=== PATIENT | female | born 1935 ===

== ENCOUNTER → 2018-09-06 | Outpatient (CLI) | payer OTHER ==
[~2018-09-06] VITALS: Ht 157.5 cm; Wt 56.7 kg
[~2018-09-06] MED LIST: ACETAMINOPHEN500 MG PO; ALENDRONATE SOD70 MG PO; CALCIUM 600 +1 EAC8 PO; FIBER625 MG PO; IBUPROFEN 200200 M1 PO; IRON325 PO; MIRALAX17 GM PO; NEURONTIN 300300 M1 PO; NORVASC5 MG PO; REMERON15 MG PO; ULTRACET TABLET1 TAB PO; UNICOMPLEX M TA1 TA1 PO
[2018-09-06 13:25] VITALS: BP 156/93
--- NOTE | 2018-09-13 07:41 | HPC ---
[facility] [address] [place] [address] PAIN MANAGEMENT CONSULTATION Name: GODFREY EVANGELISTA Room #: REG SALENA Jayden.#: [id number] Admission: 09/06/18 ������������������ Attend Phys: Conner Barrera DO Discharge: ������������������ Date of : 33 Report #: [id number] THIS REPORT FOR: //name// CC: FAM physician/PCP Conner Medrano MD DATE OF SERVICE: 09/06/2018 REFERRING PHYSICIAN: Chapo Medrano M.D. CHIEF COMPLAINT: Thoracic radiculopathy. HISTORY OF PRESENT ILLNESS: As you know, the patient is a pleasant 83-year-old female who reports acute onset of thoracic pain radiating along what appears to be the T9 dermatome on the right that began in April 2018. The patient states that pain began to intensify and by 05/05/2018, she had unremitting debilitating pain that radiated upon the right T9 apparent dermatome. She has been trialed on medication therapy, sought further evaluation, which showed a subacute T8 and T9 compression fractures and was initially then sent to see Dr. Suaerz for possible surgical consultation. The consultation at that time did not note that the compression fractures were the potential source of the pain. The patient was then subsequently referred to the Center for relief of pain to see Dr. Chapo Medrano. There was some discussion with the patient in regards to the findings of her x-ray imaging and the potential sources of symptoms. She was then subsequently referred to our clinic to trial T8 and T9 diagnostic nerve root blocks on that right side to determine which of the levels may be causing her symptoms. There was no indication in the notes about surgical options if the source of symptoms is noted with these blocks. She has been referred to our service to trial T8 and T9 diagnostic nerve root blocks. The patient reports today pain is continuous and constant with brief exacerbations. She describes the pain as burning, aching, pulling, throbbing, sharp, stabbing, pounding, numbness and tingling and places current pain score 9/10, daily average of 6-9/10, worst the pain has been is 9/10. The patient states that using her right upper extremity and standing for long periods of time exacerbates symptoms, nothing tends to improve pain. She has been referred to our clinic to discuss treatment options for suspected T8/T9 right-sided thoracic radiculopathy. PAST MEDICAL HISTORY: 1. Hypertension. 2. Breast cancer status post left mastectomy. 3. Anxiety. 4. Diabetes mellitus type 2. [address] [address] PAIN MANAGEMENT CONSULTATION Name: GODFREY EVANGELISTA Room #: REG [facility].#: [id number] Admission: 09/06/18 ������������������ Attend Phys: Conner Barrera DO Discharge: ������������������ Date of : 33 Report #: [id number] 5. Osteoporosis. 6. Osteoarthritis. 7. Seasonal allergies. 8. Irritable bowel syndrome. 9. History of shingles. PAST SURGICAL HISTORY: 1. Left mastectomy. 2. Tubal ligation. 3. Colonoscopy with EGD. 4. Hysterectomy laparoscopically. SOCIAL HISTORY: The patient denies tobacco, alcohol, IV or illicit drug use. She is retired, retired years ago. She is not receiving workmen's compensation nor is she trying to obtain disability benefits. She is not in litigation in regards to pain. REVIEW OF SYSTEMS: Positive for night sweats, fatigue and weakness, wearing corrective eyewear, cataracts, hearing loss with tinnitus, shortness of breath, walking or lying flat, asthma, wheezing, changes in bowel movements, painful bowel movements with constipation, frequent urination, nocturia, lightheadedness and dizziness, numbness or tingling sensations, memory loss, nervousness, diabetes mellitus type 2 and right chest wall pain. All other review of systems negative per 12-point review of systems other than those listed in history of present illness. PAIN SCORE: Pain impact score 31/70 indicating moderate interference of daily activities secondary to pain. ALLERGIES: No reported drug allergies. CURRENT MEDICATIONS: Amlodipine 5 mg once a day, alendronate 70 mg once a week, calcium carbonate 1 tab per day, Tylenol 325 mg p.r.n., gabapentin 300 mg t.i.d., tramadol 37.5 mg p.r.n., mirtazapine 15 mg p.o. at bedtime, sucralfate 1 gram per day, FiberCon 1 tab per day, ibuprofen 200 mg 4 times a day and Benadryl 25 mg p.o. at bedtime. IMAGING DATA: The patient arrives today with no imaging studies. PQRS: The patient has no known osteoarthritic changes of the lumbar spine, bilateral hips and knees mildly in the hands. No rheumatoid arthritis. She is placing pain intensity today 6-9/10. She is not a fall risk, has not had a fall in the last 3 months. She is treated for hypertension, but is not on any blood thinners. She is on tramadol but no definitive opioids. She has a low opioid addiction potential. Pain impact score 31/70. [facility] [address] [place] [address] PAIN MANAGEMENT CONSULTATION Name: GODFREY EVANGELISTA Room #: HECTOR Briones#: [id number] Admission: 09/06/18 ������������������ Attend Phys: Conner Barrera DO Discharge: ������������������ Date of : 33 Report #: [id number] PHYSICAL EXAMINATION: GENERAL: Well-developed, well-nourished and well-hydrated 83-year-old female, appears her stated age. She is awake, alert and oriented x 3, placing pain score at 6-9/10. HEENT: Normocephalic and atraumatic. Pupils equal, round and reactive to light. Extraocular muscles are intact. Sclerae nonicteric without injection. NEUROLOGICAL: Cranial nerves 2 through 12 grossly intact. Speech fluent. The patient deemed a good historian. LUNGS: Clear. No wheezes, rhonchi or rales. CARDIOVASCULAR: Regular. No appreciable gallop and no rub. ABDOMEN: Soft, nontender and nondistended. Normoactive bowel sounds. EXTREMITIES: Show no clubbing, no cyanosis and no edema. MUSCULOSKELETAL: The patient has some tactile sensation changes over what appears to be either the T8 or T9 dermatome on the right, negative left. There is hyperalgesia to the area as well as some allodynia. Deep inhalation and exhalation causes no change in overall pain. There are no rashes, lesions or ulcerations overlying the source of pain. There is no palpatory tenderness over the paraspinal musculature of the thoracic spine. ASSESSMENT: 1. Chronic T8 vertebral compression fracture. 2. Chronic T9 vertebral compression fracture. 3. Thoracic radiculopathy. PLAN: 1. Based on today's physical exam and history the patient has provided, the description the patient is using in regards to pain as well as the distribution, which appears to be upon the T8/T9 dermatomal distribution on the right, likely source of the patient's pain is low thoracic radiculopathy. I do not have imaging available to me to date to review but given the distribution of symptoms, I would be concerned of neural foraminal stenosis affecting either one of these 2 nerve roots. The patient has sought evaluation through Neurosurgery but has been determined that she needs to undergo diagnostic block to determine which level the symptoms may be radiating on as it is difficult to determine dermatomal distributions of T8-T9 as they can have a variable pathways. We discussed this with the patient today. We also discussed other treatment options as follows. We discussed physical therapy, stretching exercise, core strengthening as a way to improve overall pain. We discussed medication management adding a neuropathic pain medication that she uses on a consistent basis. We discussed the requested nerve root blocks and then ultimately possible surgical options, which could include spinal cord stimulator or possible surgical decompression if necessary. After reviewing risks and benefits of all proposed treatment options, the patient chose to begin with medication management initially. If this is not helpful, then look towards the [place] [address] PAIN MANAGEMENT CONSULTATION Name: GODFREY EVANGELISTA Room #: REG SALENA Briones#: [id number] Admission: 09/06/18 ������������������ Attend Phys: Conner Barrera DO Discharge: ������������������ Date of : 33 Report #: [id number] possible surgical options. 2. The patient will be started on gabapentin 300 mg dose. We will start 1 tablet at night and continue to escalate dosing to reach approximately 900 mg 3 times a day. We will start out at 300 mg and escalate dose every 3 days until which time the patient either reaches improvement in pain or side effects she cannot tolerate. She was given a written titration of the medication to follow today. She was also given a prescription for gabapentin 300 mg dose, #270 tablets. The patient was advised to watch for side effects of somnolence, decreased in mental acuity, disorientation, confusion, mental slowing and with the medication if she notes side effects and no improvement in symptoms, she will reduce the dose to the prior lower dose reducing her potential side effects and contact the clinic for further evaluation. 3. We will see the patient back in followup visit for possible nerve root blocks. We will begin the authorization process as her insurer will require prior authorization to undergo initially a T9 nerve root block on the right. If this is unsuccessful in alleviating symptoms, then we have been requested by her neurosurgery team to provide the next week a T8 right-sided nerve root block. We will obtain authorization for both blocks. Hopefully, we will have the right block the first and not have to utilize the second injection. We will begin this authorization process immediately. Once it has been obtained, we will have the patient return to discuss the option at this treatment. 4. We wish to thank nurse practitioner, Scarlet Hector and Dr. Chapo Medrano for the referral of this patient to our clinic. We will keep you apprised of her response to treatment as we address thoracic radiculopathy. Again, we wish to thank you for the opportunity to see this patient in consultation. ��������������������������������������������� <ELECTRONICALLY SIGNED> ���������������������������������������� By: Conner Barrera DO ��������������������������������������������� 09/13/18 [id number] [id number] Conner Barrera DO /nt
== END ==
LOC: PAIN 08-30 07:10
DX: S22.068A Other fracture of T7-T8 thoracic vertebra, initial encounter for closed fracture (principal); M54.14 Radiculopathy, thoracic region; I10 Essential (primary) hypertension; E11.9 Type 2 diabetes mellitus without complications; F41.9 Anxiety disorder, unspecified; M81.0 Age-related osteoporosis without current pathological fracture; M19.90 Unspecified osteoarthritis, unspecified site; Z79.899 Other long term (current) drug therapy; Z90.710 Acquired absence of both cervix and uterus; Z85.3 Personal history of malignant neoplasm of breast; X58.XXXA Exposure to other specified factors, initial encounter; Y93.89 Activity, other specified; Y92.89 Other specified places as the place of occurrence of the external cause; Y99.8 Other external cause status

== ENCOUNTER → 2018-10-04 | Outpatient (CLI) | payer OTHER ==
[~2018-10-04] VITALS: Ht 157.5 cm; Wt 63.3 kg
[~2018-10-04] MED LIST changes: +TRAMADOL HCL50 MG PO
[2018-10-04 14:20] VITALS: BP 155/83
--- NOTE | 2018-10-04 14:39 | NUR ---
Pain Clinic Assessment: 1. History of Osteoarthritis: yes History of Rheumatoid Arthritis: Not Applicable 2. Height: 5 ft. 2 in. 157.5 cm. Weight: 139.6 lb. oz. 63.322 kg. Patient's BMI: 25.5 3. Vital Signs: BP: 155/83 Pulse: 85 Resp: 16 Temp: 02 Sat: 98 ECG Mon: 4. Pain Intensity: 7 5. Fall Risk: Dizziness: N Needs help standing or walking: N Fallen in the last 3 months: N Fall risk comments: 6. Patient on Blood Thinner: None 7. History of Hypertension: Y 8. Opioid Therapy greater than 6 weeks: N Opiate Contract Signed: 9. Risk Assessment Tool Provided: low-0 10. Functional Assessment Tool: 35/ 11. Recreational Drug Use: Never Drug Type: Tobacco Use: Never Smoker Tobacco Type: Amount or Packs/day: How Many Years: Alcohol Use: No Frequency: Quant:
--- NOTE | 2018-10-11 10:49 | HPC ---
[facility] [address] [place] [address] PAIN MANAGEMENT CONSULTATION Name: GODFREY EVANGELISTA Room #: REG SALENA MMiguel A.#: [id number] Admission: 10/04/18 ������������������ Attend Phys: Conner Barrera DO Discharge: ������������������ Date of : 33 Report #: [id number] THIS REPORT FOR: //name// CC: [facility] physician/PCP LINA Waggoner MD DATE OF SERVICE: 10/04/2018 CHIEF COMPLAINT: Thoracic radicular symptoms. HISTORY OF PRESENT ILLNESS: As you know, the patient is an 83-year-old female who returns today in followup visit having been started on gabapentin for pain control. She is now taking medication at 300 mg in morning, 300 mg at noon and 600 mg at night. She is beginning to note improvement in symptoms. We recommend that the patient then continue escalation. She returns to make further adjustments in her medication management. She is denying any significant side effects to the medication at this time. She wishes to make further adjustments in the medication to address radicular symptoms. ALLERGIES: None reported. CURRENT MEDICATIONS: Gabapentin 300 mg 3 times a day, FiberCon 1 tab per day, MiraLax 17 grams per day, ibuprofen 200 mg 3 times a day, ferrous sulfate 325 mg per day, calcium carbonate 1 tab per daily, multivitamin 1 tab per day, alendronate 70 mg once a week, acetaminophen 500 mg b.i.d., mirtazapine 15 mg p.o. at bedtime, amlodipine 5 mg p.o. q. day, tramadol 37.5/325 mg dose 1 tab p.o. q. 8 hours p.r.n. for pain. IMAGING: There is no new imaging available. PQRS: The patient has arthritic changes of the lumbar spine, bilateral hips, mildly in the knees and in the hands. No rheumatoid arthritis. She is placing pain intensity today at 7/10. She is not a fall risk, has not had a fall in the last 3 months. She is not on blood thinners. She is treated for hypertension. She is not on any chronic opioids and does have a low opioid addiction potential, placing pain impact score at 35/70, moderate interference of daily activities secondary to pain. PHYSICAL EXAMINATION: VITAL SIGNS: Blood pressure 155/83, pulse 85, respiratory rate 16 and unlabored. The patient is 98% on room air. Height 5 feet 2 inches tall, weight 139.6 pounds, BMI calculated 25.5. GENERAL: Well-developed, well-nourished, well-hydrated 83-year-old female appearing stated age, placing current pain score 7/10. [place] [address] PAIN MANAGEMENT CONSULTATION Name: GODFREY EVANGELISTA Room #: REG CLKriss Carpenter.#: [id number] Admission: 10/04/18 ������������������ Attend Phys: Conner Barrera DO Discharge: ������������������ Date of : 33 Report #: [id number] HEENT: Normocephalic, atraumatic. Pupils equal, round, reactive to light. EXTREMITIES: Show no clubbing, no cyanosis and no edema. EXTREMITIES: There are some tactile sensation changes over what appears to be the T8-T9 dermatome on the right, negative left. Hyperalgesia is noted in the area and mild allodynia. Deep inhalation and exhalation again does not change overall pain. There is no rash, lesions, or ulcerations over the area consistent with herpes zoster. There is no palpatory tenderness over the thoracic spine. ASSESSMENT: 1. Chronic T8 vertebral compression fracture. 2. Chronic T9 vertebral compression fracture. 3. Thoracic radiculopathy. 4. Medication intolerance. PLAN: 1. The patient has returned today in followup visit indicating that the gabapentin is causing some lower extremity swelling. Unfortunately, this is a potential side effect with gabapentin. We recommend the patient begin weaning off the therapy. She is noticing some improvement in symptoms with the medication, but given the side effects, she wishes to decrease the medication and come off entirely as she is not receiving significant enough benefit to continue with the potential side effects. We have given the patient a titration schedule to come off of the gabapentin. The patient may note worsening of pain and if this occurs, we will adjust neuropathic medications if necessary at our next followup visit. The patient has been given new titration to come off the gabapentin in written form today. We have copies in our chart if the patient does have questions or concerns. 2. We have provided the patient with a prescription of tramadol 50 mg dose for allowing her one tab every 6 hours p.r.n. for pain. She is to take the medication only when necessary. She is not to utilize the medication prophylactically. She is to watch for side effects of somnolence, decreased mental acuity, disorientation, confusion, mental slowing and constipation. If she notes any side effects, contact our clinic after discontinuing use. 3. We will see the patient back in followup visit in 1 month. Once we have stabilized the patient on a dose of medication and appear appropriate, she will be returning to her PCP to continue the therapy. We are hopeful that the adjustments today will improve her overall pain and reduce the potential side effects from gabapentin. We will see her back in 1 month. ��������������������������������������������� <ELECTRONICALLY SIGNED> ���������������������������������������� By: Conner Barrera DO ��������������������������������������������� 10/11/18 1049 [id number] [id number] Conner Barrera DO /alexandra
== END ==
LOC: PAIN 06:57
DX: M48.54XA Collapsed vertebra, not elsewhere classified, thoracic region, initial encounter for fracture (principal); M54.14 Radiculopathy, thoracic region; Z79.899 Other long term (current) drug therapy

== ENCOUNTER → 2021-01-22 | Outpatient (CLI) | payer OTHER ==
[~2021-01-22] VITALS: Ht 157.5 cm; Wt 69.3 kg
[~2021-01-22] MED LIST changes: +ASA81BEC PO; +B COMPLEX WITH1 EAC1 PO; +COZAAR 25 MG TA25 M1 PO; +VITAMIN D3125 MC1 PO
[2021-01-22 08:32] VITALS: BP 184/94
--- NOTE | 2021-01-22 08:48 | NUR ---
Pain Clinic Assessment: 1. History of Osteoarthritis: yes History of Rheumatoid Arthritis: Not Applicable 2. Height: 5 ft. 2 in. 157.5 cm. Weight: 152.8 lb. oz. 69.310 kg. Patient's BMI: 27.9 3. Vital Signs: BP: 184/94 Pulse: 96 Resp: 20 Temp: 02 Sat: 99 ECG Mon: 4. Pain Intensity: 7 5. Fall Risk: Dizziness: N Needs help standing or walking: N Fallen in the last 3 months: N Fall risk comments: 6. Patient on Blood Thinner: None 7. History of Hypertension: Y 8. Opioid Therapy greater than 6 weeks: N Opiate Contract Signed: 9. Risk Assessment Tool Provided: low-0 10. Functional Assessment Tool: 35/70 11. Recreational Drug Use: Never Drug Type: Tobacco Use: Never Smoker Tobacco Type: Amount or Packs/day: How Many Years: Alcohol Use: No Frequency: Quant:
--- NOTE | 2021-01-28 08:07 | HPC ---
[address] [address] PAIN MANAGEMENT CONSULTATION Name: GODFREY EVANGELISTA Room #: REG SALENA MMiguel A.#: [id number] Admission: 01/22/21 Attend Phys: Conner Barrera DO Discharge: Date of : 33 Report #: [id number] THIS REPORT FOR: cc: NIESHA MCGUIRE MD Physician not on staff Conner Barrera DO ~ cc: Niesha Mcguire NP, Chapo Medrano MD DATE OF SERVICE: 01/22/2021 CHIEF COMPLAINT: Low back pain, bilateral lower extremity pain. HISTORY OF PRESENT ILLNESS: As you know, the patient is an 85-year-old female who was referred back to our service due to lumbar radiculopathy. The patient was recently hospitalized for lumbar radicular symptoms. 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 She was deemed a nonsurgical candidate and advised to return to our clinic to trial an epidural injection. She returns today reporting pain that is aching, burning, constant, pounding, sharp, stabbing, and pulling. Places current pain score 7/10. All activities exacerbate symptoms, nothing tends to improve pain. She has been referred back to our clinic to trial an epidural injection under fluoroscopic guidance. ALLERGIES: GABAPENTIN. CURRENT MEDICATIONS: Losartan 25 mg once a day, tramadol 50 mg every 8 hours p.r.n., gabapentin 300 mg p.o. at bedtime, FiberCon 625 mg once a day, MiraLax 17 grams per day, ibuprofen 200 mg every 6 hours, ferrous sulfate 325 mg per day, calcium carbonate 1 tab per day, multivitamin 1 tab per day, Alendronate 70 mg once a week, acetaminophen 500 mg twice a day, mirtazapine 15 mg once a day, amlodipine 5 mg per day. SOCIAL HISTORY: The patient denies tobacco, alcohol, or IV illicit drug use. She is retired, retired years ago, accompanied by a family member present in the room today. IMAGING: No new imaging available. PQRS: The patient has known arthritic changes of lumbar spine, bilateral hips, bilateral knees and hands. No rheumatoid arthritis. She is placing pain today at 7/10. She is not a fall risk and has not had a fall in the last 3 months. She is not on blood thinners. She is treated for hypertension, but is on low dose opioid medication for pain control without any concern of addiction. Pain impact score is 45/70, moderate to severe interference of daily activities secondary to pain. PHYSICAL EXAMINATION: [address] [address] PAIN MANAGEMENT CONSULTATION Name: GODFREY EVANGELISTA Room #: REG Kriss Carpenter.#: [id number] Admission: 01/22/21 Attend Phys: Conner Barrera DO Discharge: Date of : 33 Report #: [id number] VITAL SIGNS: Blood pressure 184/94, pulse 96, respiratory rate 20, unlabored. The patient is 99% on room air. Height 5 feet 2 inches tall, weight 152.2 pounds, BMI calculated 27.9. GENERAL: Well-developed, well-nourished, well-hydrated 83-year-old female appearing stated age. She is in no acute distress. Awake, alert and oriented x3. She is wearing a mask in compliance with COVID-19 regulation. She does have difficulty with hearing. EXTREMITIES: Show no clubbing, no cyanosis. There is noted edema in the lower extremities bilaterally, believed to be consistent with swelling from gabapentin. MUSCULOSKELETAL: Lower extremities strength equal and symmetrical, but deconditioned. Seated straight leg raising negative. Supine straight leg raising negative. Fabere's test is negative. Modified Gaenslen's positive for axial low back pain. Gait is antalgic. ASSESSMENT: 1. Symptomatic lumbar radiculopathy. 2. Grade 2 spondylolisthesis of L4 on L5. 3. Lumbar radiculopathy. 4. Lumbosacral spondylosis with radiculopathy. 5. Degeneration of lumbar spine. PLAN: 1. The patient returns today in followup visit per the request of the referring physician to trial an epidural injection under fluoroscopic guidance. We have discussed with the patient the treatment options we have available to address axial back pain and intermittent lower extremity pain for which the patient was recently seen in the hospital. We discussed physical therapy, stretching exercises, core strengthening as a treatment course. We discussed medication management utilizing nonsteroidal anti-inflammatories along with a possible adjustment in her neuropathic medications. We discussed lumbar epidural injections for which the patient was referred to our clinic. We also discussed surgical options with the patient, though given her advanced age. I do not feel she is a candidate for surgery. After reviewing the risks and benefits of all proposed treatment options, the patient chose to undergo lumbar epidural injection under fluoroscopic guidance. The patient was advised risks and benefits of a lumbar epidural injection. These risks include but are not necessarily limited to bleeding, bruising, infection, worsening pain, no relief of pain, also risk of temporary or permanent muscle weakness, temporary or permanent nerve damage, possible paralysis, and . The patient states understood and wished to proceed. 2. No medication changes made at today's visit. The patient will continue current medical therapy as prior prescribed. 3. We plan to see the patient back in followup visit on an as-needed basis for the next in the series of lumbar epidural injections. [facility] [address] [place] [address] PAIN MANAGEMENT CONSULTATION Name: GODFREY EVANGELISTA Room #: REG SALENA Carpenter.#: [id number] Admission: 01/22/21 Attend Phys: Conner Barrera DO Discharge: Date of : 33 Report #: [id number] PROCEDURE NOTE DESCRIPTION OF PROCEDURE: L5-S1 interlaminar epidural steroid injection under fluoroscopic guidance. This is the first procedure of the first series that the patient is undergoing. After obtaining written consent, the patient was taken back to the fluoroscopy suite, placed in a prone position with pillow under the abdomen to decrease lumbar lordosis. The skin overlying the lumbosacral area was then prepped and draped in aseptic fashion. The L5-S1 vertebral interspace was then identified by AP fluoroscopy. The skin and subcutaneous tissue overlying the target site of injection was anesthetized with 3 mL 1% lidocaine. A 20-gauge Tuohy needle was then advanced under fluoroscopic guidance towards the epidural space using a sagittal approach. The epidural space was identified using loss of resistance to air technique. After negative aspiration for heme or cerebrospinal fluid, a total of 1 mL of Omnipaque was injected. A lumbar epidurogram was confirmed using both AP and lateral fluoroscopy. After negative aspiration for heme or cerebrospinal fluid, 5 mL of a solution containing 2 mL 40 mg/mL, 80 mg total of triamcinolone along with 3 mL of lidocaine 1% was injected in increments. Contrast spread was noted in the posterior epidural space. The needle was then retracted approximately half way and needle tract flushed with 1 mL of 1% lidocaine. Needle was then removed. There were no apparent sensory or motor deficits in the lower extremity following the procedure. A sterile bandage was placed over the injection site. The heart rate, pulse, oximetry and blood pressure were continuously monitored after the procedure. There were no complications. The patient tolerated the procedure well and was carefully escorted to the recovery room in stable condition. There were no apparent complications. After meeting discharge criteria, the patient was then discharged home. <ELECTRONICALLY SIGNED> By: Conner Barrera DO 01/28/21 [id number] Conner Barrera DO /nt
== END | disposition home or self-care (01) ==
LOC: PAIN 06:56
PROVIDERS: ATTEND Anesthesiology Pain Medicine
DX: M51.16 Intervertebral disc disorders with radiculopathy, lumbar region (principal); M43.16 Spondylolisthesis, lumbar region; M47.27 Other spondylosis with radiculopathy, lumbosacral region; I10 Essential (primary) hypertension; M19.90 Unspecified osteoarthritis, unspecified site; Z98.890 Other specified postprocedural states; Z79.899 Other long term (current) drug therapy; Z87.891 Personal history of nicotine dependence; Z88.8 Allergy status to other drugs, medicaments and biological substances

== ENCOUNTER → 2021-03-04 | Outpatient (CLI) | payer OTHER ==
[~2021-03-04] VITALS: Ht 157.5 cm; Wt 65.2 kg
[~2021-03-04] MED LIST changes: +CODEINE SULFATE15 MG PO
[2021-03-04 11:29] VITALS: BP 186/96
--- NOTE | 2021-03-04 14:39 | HPC ---
[facility] [place] [address] PAIN MANAGEMENT CONSULTATION Name: GODFREY EVANGELISTA Room #: REG SALENA TanAmadouElianaAmadou#: [id number] Admission: 03/04/21 Attend Phys: Conner Barrera DO Discharge: Date of : 33 Report #: [id number] THIS REPORT FOR: cc: ENMA MCGUIRE Physician not on staff Conner Barrera DO ~ cc: Enma Mcguire NP, Chapo Medrano MD DATE OF SERVICE: 03/04/2021 CHIEF COMPLAINT: Low back pain, bilateral lower extremity pain. HISTORY OF PRESENT ILLNESS: As you know, the patient is a very pleasant 85-year-old female who has been referred back to our service by her neurosurgery team to trial lumbar epidural injections under fluoroscopic guidance. We saw the patient at our last visit of 01/22/2021, undergoing a lumbar epidural injection under fluoroscopic guidance. The patient reports with that injection an improvement of symptoms of 70% or greater, which is ongoing. She returns today reporting a pain score at 3/10. She describes the pain more as an aching, burning, constant, pounding, sharp, stabbing and pulling sensation. Other than the epidural injection, nothing else has improved the pain. She returns today in followup visit stating that the tramadol she trialled for pain control caused her to be somewhat agitated and did not provide much in the way of improvement. She received this prescription through her primary care physician. She has returned to our clinic to discuss options for treatment, specifically medication management to address residual symptoms. She wishes to delay the next in the series of epidural injections. ALLERGIES: GABAPENTIN. CURRENT MEDICATIONS: Cholecalciferol 125 mcg per day, vitamin B complex 1 tab per day, aspirin 81 mg per day, losartan 25 mg once a day, tramadol 50 mg 4 times a day, calcium carbonate 1 tab per day, MiraLax 17 grams per day, ibuprofen 200 mg q. 6 hours, ferrous sulfate 325 mg a day, multivitamin 1 tab per day, alendronate 70 mg once a week, acetaminophen 650 mg 2 tabs b.i.d., mirtazapine 15 mg p.o. at bedtime. SOCIAL HISTORY: The patient denies tobacco, alcohol or IV or illicit drug use. She is retired, retired years ago, accompanied by a family member present in the room today. IMAGING: No new imaging available. PQRS: The patient has known arthritic changes of lumbar spine, bilateral hips and bilateral knees and hands. No rheumatoid arthritis. Pain intensity today 310. She is not a fall risk, has not had a fall in the last 3 months. She is not on blood thinners, but is treated for hypertension. She is on no opioid [address] [address] PAIN MANAGEMENT CONSULTATION Name: TONJA,GODFREY Room #: REG CLI Anselmo#: [id number] Admission: 03/04/21 Attend Phys: Conner Barrera DO Discharge: Date of : 33 Report #: [id number] medications, has a low opioid addiction potential. Pain impact is 35/70, moderate interference of daily activities secondary to pain. PHYSICAL EXAM: VITAL SIGNS: Blood pressure 186/96, pulse 92, respiratory rate 16 and unlabored. The patient is 98% on room air. Height 5 feet 2 inches tall, weight 143.8 pounds, BMI calculated 26.3. GENERAL: Well-developed, well-nourished, well-hydrated 85-year-old female appearing her stated age, pain is rated today 3/10. HEENT: Normocephalic, atraumatic. Pupils equal, round and responsive. EXTREMITIES: Show no clubbing, no cyanosis. No appreciable edema. MUSCULOSKELETAL: Lower extremity strength equal and symmetrical 5/5, but deconditioning is noted bilaterally. Seated straight leg raising negative. Supine straight leg raising is negative. Fabere's test is negative. Modified Gaenslen is positive for axial low back pain. Ankle clonus negative. Babinski is negative. ASSESSMENT: 1. Symptomatic lumbar radiculopathy. 2. Grade II spondylolisthesis of L4 on L5. 3. Lumbosacral spondylosis with radiculopathy. 4. Lumbar degeneration. 5. Chronic intractable pain. PLAN: 1. The patient returns today in followup visit to discuss the possibility of starting medications to address residual pain. She is now placing pain score 3/10. She is very pleased with response to the epidural injection provided at our last visit, but unfortunately her symptoms of 3/10 pain continues to be problematic. She returns to discuss options for treatment from a medication management standpoint. The patient has been on tramadol provided by her primary care physician, which according to the patient caused her to be somewhat agitated and unable to sleep, which is consistent with the tramadol dosing and the potential side effects. She has been advised to discontinue the medication until the symptoms resolve. She wants to discuss the possibility of starting a low dose pain medication in conjunction with intermittent epidural injections. 2. The patient was provided a prescription of codeine 15 mg dose 1 tab p.o. t.i.d. p.r.n. pain., given the patient #60 tablets. The patient will watch for side effects to the medication including sleepiness, disorientation, confusion, mental slowing and constipation. If she notes side effects that are severe, discontinue the medication and call for further instructions. The prescription was sent via e-scribe to local pharmacy. We did receive confirmation that the prescription is being processed. 3. The patient was advised she can continue to use her Tylenol as needed. She does find some benefit with the Tylenol 650 mg tablets on a b.i.d. basis. She can continue that medication. [address] [address] PAIN MANAGEMENT CONSULTATION Name: TONJAGODFREY Room #: REG SALENA Anselmo#: [id number] Admission: 03/04/21 Attend Phys: Conner Barrera DO Discharge: Date of : 33 Report #: [id number] 4. We will plan to see the patient back in followup visit in approximately 30 days. Review the efficacy of the medication at that time and determine if any other adjustments are necessary. I did advise the patient and the family member present in the room today that if her symptoms do continue to be problematic or she is having side effects from the medication to contact our clinic and we will provide other suggestion treatment options. <ELECTRONICALLY SIGNED> By: Conner Barrera DO 03/04/21 [id number] Conner Barrera DO /nt
== END ==
LOC: PAIN 06:52
PROVIDERS: ATTEND Anesthesiology Pain Medicine
DX: M43.16 Spondylolisthesis, lumbar region (principal); M47.26 Other spondylosis with radiculopathy, lumbar region; M47.27 Other spondylosis with radiculopathy, lumbosacral region; G89.29 Other chronic pain; Z88.8 Allergy status to other drugs, medicaments and biological substances; Z79.899 Other long term (current) drug therapy